=== PATIENT | male | born 1975 | race African-American/Black ===

== ENCOUNTER → 2018-12-14 | Outpatient (CLI) | payer OTHER ==
[~2018-12-14] MED LIST: PROHANCE 279.3MG/ML 15ML VIAL (A9576) As Ordered ONE; PROHANCE 279.3MG/ML 5ML VIAL (A9576) As Ordered ONE
--- NOTE | 2018-12-14 15:28 | REP ---
MR BRAIN WITHOUT AND WITHOUT CONTRAST: HISTORY: Possible tumor. CONTRAST: ProHance 19 mL. COMPARISON: 05/31/2018. There are no areas of abnormal signal intensity in the brain parenchyma. There is no intraparenchymal hemorrhage, infarct, mass, or midline shift. 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 There is no enhancement with contrast. There is on hydrocephalus. There is no extracerebral collection. Mucosal thickening is present in the maxillary sinuses. IMPRESSION: There is a nonenhancing 2.3 cm nodule in the inferior fourth ventricle. 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 Electronically Signed by Robin Gregory MD 12/14/2018 03:32 P
== END ==
LOC: M RAD 11:57
PROVIDERS: ATTEND General Practice
DX: D49.6 Neoplasm of unspecified behavior of brain (principal)
CPT/HCPCS: 70553; A9576